=== PATIENT | male | born 1995 | race Caucasian/White ===

== ENCOUNTER 2017-02-07 17:34 | Emergency (ER) | payer BC ==
[~2017-02-07] VITALS: Ht 180.3 cm; Wt 65.8 kg
--- NOTE | 2017-02-07 18:39 | PHYS DOC ---
General Chief Complaint: SUICDAL IDEATION Stated Complaint: SUICIDAL IDEATION Time Seen by MD: 18:14 Source: patient, family Problems: History of Present Illness Initial Comments Patient with mother for suicidal ideations. Patient says thoughts of suicide for last 3 weeks. When asked what midjugular soft, he apparently has some stresses at job and with relationships. He does not have a suicidal plan. Sparely of these sorts of thoughts before but has not recently been hospitalized in a mental health facility. He occasionally has thoughts of harming others but no plans to do so. He denies any visual or auditory hallucinations. He has no acute medical issues at this time. He denies any fever chills URI symptoms or cough. He says had continual chest pain for he doesn't know how long. This not acutely changed or different. There's no acute chest pain or There is no nausea vomiting or abdominal pain. He has no change in bowel or bladder habits there is no focal extremity or neurologic complaints noted. According to the mother, she is having difficulty getting the patient appropriate resources. She doesn't think he necessarily needs to be hospitalized , but indicates that hard to get him consistent help that he needs some kind of significant intervention. She says these very conscientious about work, and really won't take off work to go get help as he might need to. Other than as described there is been nothing done for this prior to arrival in the ER no fractures noted increase or decrease in symptoms she might have. Patient's past medical history is remarkable for multiple mental health issues. He has OCD, ADHD, bipolar with depression, and Tourette syndrome. Apparently the ladder was diagnosed after a several month hospital stay when he was 13 years of age. His other siblings at home with similar mental health issues. Mother says he also has a heart murmur which is being evaluated by pediatric cardiology and which is clear observation only. He is a nonsmoker and nonuser of ethanol. Denies drug use. Allergies: Coded Allergies: clarithromycin (Verified Allergy, Unknown, 02/07/17) Past Medical History Psychosocial History: attn. deficit disorder, bipolar, other Social History Smoker: non-smoker Alcohol: none Drugs: none Review of Systems All Other Systems: Reviewed and Negative Physical Exam General Appearance: WD/WN, no apparent distress Eyes: bilateral eye EOMI, bilateral eye PERRL, bilateral eye normal inspection Ear, Nose, Throat: normal ENT inspection, normal pharynx Neck: full range of motion, supple, normal inspection Respiratory: lungs clear, normal breath sounds, no respiratory distress Cardiovascular: regular rate, rhythm, no edema Gastrointestinal: non tender, soft, no organomegaly Back: no CVA tenderness, no vertebral tenderness Extremities: non-tender, normal inspection, no pedal edema Neurologic/Psychiatric: director systems II-XII nml as tested, no motor/sensory deficits, alert, normal mood/affect, oriented x 3 Skin: normal color Comments Generally this a well-developed well-nourished white male in no acute distress. Vitals are as noted. Pertinent findings on physical exam showed pupils are equal reactive light accommodation. Extra ocular movements are intact. Ears and throat are clear. Neck is supple. Chest is clear. He has a very slight 1/6 midsystolic murmur heard marginally at the right upper sternal border. Abdomen is soft and nontender. The back shows no CVA tenderness. Actually show no rash cyanosis or edema. Neurologic exam shows an awake alert oriented 4. He is alert and cooperative. He is not actively hallucinating. He is not actively suicidal or homicidal. Cranial nerves II-12 grossly intact. There are no gross motor sensory deficits appreciated. Remainder of physical exam is clinically unremarkable. Orders, Labs, Meds Old charts note no prior ER visits within the current system. I discussed with the patient is mother early in the ER course the process of medical clearance. Following this, we will involve psychiatry by telemedicine. They voice understanding and acceptance. Labs clear clinically unremarkable. 2019 Patient has been resting comfortably in the ER. He is active alert and cooperative. I discussed with the patient and his mother that at this time, I think he is medically cleared for telemedicine psychiatry evaluation. They voice understanding. Nursing staff notified. [id number] Patient has been evaluated by telemedicine psychiatry. I did receive a call from the physician, . He feels the patient does not represent an acute suicidal risk. He would like us to increase the patient's Cymbalta from 30 mg to 60 mg daily, and have the patient continue on Ativan and pursuing outpatient follow-up. I discussed this plan with the patient and his mother. They both voice understanding and agreeable to the same. We will go ahead and write a prescription for Cymbalta 60 mg daily, with refills for 3 months. Mother seems somewhat frustrated because she really has trouble getting outpatient follow-up. They have worked for the guidance center, but apparently they only see the patient for 6 months and then he is to begin the process all over again. Patient is somewhat frustrated because he says he really doesn't get much out of therapy, especially when gets once a week. I discussed with them that I know it's difficult to find resources, especially in [facility] where they live or in [facility]. I indicated that I know some inpatient psychiatrist, but I really don't know the outpatient seen at well. They may wind up going back to the guidance center. However, I did suggest that they could call [facility] in [place] to find an outpatient psychiatrist, and he did suggest the name of a mental health counselor unknowing [place], Goran Wall and his partners, that they might be able to call as well and I think might be able to be of service to the patient. Mother voices understanding of the need to try to pursue outpatient care for the patient. I did reinforce the patient became and recognizes the signs of problems, that was abates forward on his part. He does seem motivated to get help, albeit somewhat on his terms. I hope that he will be able to find some mental health resources to assist with his multiple issues. He looks well, in no acute discomfort or stress, okay for discharge home at this time with mother. MILTON MASSEY MD Feb 07, 2017 18:39
[2017-02-07 18:50] VITALS: BP 145/74
[2017-02-07 19:34] LABS: BASO # 0.1 x10^3/uL (0.0-0.2); BASO % 1 % (0-3); EOS # 0.2 x10^3/uL (0.0-0.7); EOS % 4 % (0-3); HEMATOCRIT 46.7 % (39.0-53.0); LYMPH # 1.9 x10^3/uL (1.0-4.8); LYMPH % 30 % (24-48); MEAN CORPUSCULAR HEMOGLOBIN 29 pg (25-35); MEAN CORPUSCULAR HGB CONC 34 g/dL (31-37); MEAN CORPUSCULAR VOLUME 86 fL (79-100); MONO # 0.5 x10^3/uL (0.0-1.1); MONO % 7 % (0-9); NEUT # 3.8 x10^3uL (1.8-7.7); NEUT % 59 % (31-73); PLATELET COUNT 219 x10^3/uL (140-400); RED BLOOD COUNT 5.46 x10^6/uL (4.30-5.70); RED CELL DISTRIBUTION WIDTH 13.2 % (11.5-14.5); WHITE BLOOD COUNT 6.5 x10^3/uL (4.0-11.0)
[2017-02-07 19:42] LABS: AMPHETAMINE/METHAMPHETAMINE NEG (NEG); BARBITURATES NEG (NEG); BENZODIAZEPINES NEG (NEG); CANNABINOIDS NEG (NEG); COCAINE NEG (NEG); METHADONE NEG (NEG); OPIATES NEG (NEG); PHENCYCLIDINE NEG (NEG)
[2017-02-07 19:45] LABS: BACTERIA,URINE 0 /HPF (0-FEW); BILIRUBIN,URINE NEG (NEG); CLARITY,URINE CLEAR; COLOR,URINE YELLOW; GLUCOSE,URINE NEG (NEG); NITRITE,URINE NEG (NEG); RBC,URINE OCC /HPF (0-2); SQUAMOUS EPITHELIAL CELL,UR OCC /LPF; UROBILINOGEN,URINE 0.2 mg/dL (0.2 mg/dL); WBC,URINE OCC /HPF (0-4)
[2017-02-07 19:48] LABS: ACETAMIN < 10 mcg/mL (10-30); SALIC 0.4 mg/dL (2.8-20.0)
[2017-02-07 19:49] LABS: ETHANOL < 10 mg/dL (0-10)
[2017-02-07 19:50] LABS: ALBUMIN 4.4 g/dL (3.4-5.0); ALBUMIN/GLOBULIN RATIO 1.4 (1.0-1.7); CALCIUM 9.1 mg/dL (8.5-10.1); CREATININE 0.9 mg/dL (0.7-1.3); GFR 105.5; TOTAL BILIRUBIN 0.8 mg/dL (0.2-1.0); TOTAL PROTEIN 7.6 g/dL (6.4-8.2)
== END 2017-02-07 23:15 | disposition home or self-care (01) ==
LOC: ER 17:34
DX: R45.851 Suicidal ideations (principal); R07.9 Chest pain, unspecified; F42.9 Obsessive-compulsive disorder, unspecified; F90.9 Attention-deficit hyperactivity disorder, unspecified type; F31.9 Bipolar disorder, unspecified; Z88.1 Allergy status to other antibiotic agents
CPT/HCPCS: 36415; 80053; 80320; 81001; 82010; 82140; 84443; 85027; 99284; G0481; G6038; 80305; G0480; 80196